=== PATIENT | female | born 1990 | race Caucasian/White ===

== ENCOUNTER 2021-02-15 06:00 | Inpatient (IN) | payer BC ==
[2021-02-15] MEDS ORDERED: TERBUTALINE 1 MG/ML VIAL SQ PRN (06:18)
[2021-02-15] MEDS ORDERED: CARBOPROST TROMETHAMINE 250 MCG/ML 1 ML AMP IM PRN (06:18)
[2021-02-15] MEDS ORDERED: LIDOCAINE 0.5% (PF) 5 MG/ML (50 ML SDV) SQ PRN (06:18)
[2021-02-15] MEDS ORDERED: METHYLERGONOVINE 0.2 MG/ML 1 ML AMP IM PRN (06:18)
[2021-02-15] MEDS ORDERED: OXYTOCIN 10 UNIT/ML 1 ML VIAL IM PRN (06:18)
[2021-02-15 06:24] VITALS: RESP 16
[2021-02-15] MEDS: LACTATED RINGERS 1,000 ML IV SCH ×2 (06:31→17:43)
[2021-02-15] MEDS: OXYTOCIN 30 UNITS/500 ML NS 30 UNIT in SALINE 1 500ML.BAG IV SCH ×2 (06:32→17:40)
[2021-02-15 06:58] LABS: Basophils # (A) 0.1 k/uL (0-0.2); Basophils % (A) 1 %; Eosinophils # (A) 0.1 k/uL (0-0.7); Eosinophils % (A) 1 %; HCT 39.3 % (34.0-46.0); HGB 12.9 gm/dL (11.4-16.0); Lymphocytes # (A) 1.9 k/uL (1.0-4.8); Lymphocytes % (A) 17 %; MCHC 32.9 g/dL (31.0-37.0); MCV 94.4 fL (80.0-100.0); Mean Platelet Volume 7.8; Monocytes # (A) 0.6 k/uL (0-1.0); Monocytes % (A) 5 %; Neutrophils # (A) 8.8 k/uL (1.3-7.7); Neutrophils % (A) 75 %; Platelet Count 255 k/uL (150-450); RBC 4.16 m/uL (3.80-5.40); RDW 13.7 % (11.5-15.5); WBC 11.7 k/uL (3.8-10.6)
--- NOTE | 2021-02-15 07:45 | P.HPOB ---
History of Present Illness H&P Date: 02/15/21 Chief Complaint: Here for induction of labor, postdates This is a 30-year-old female 1 para 0 EDC 02/13/2021 at 40-2/7 weeks' gestation. Patient presents today for induction with reasonably favorable cervix. has been unremarkable, she denies vaginal bleeding, fluid leakage. Fetus is been active throughout the . Past medical history is unremarkable. Past surgical history is negative. Current medications vitamins daily, Zyrtec when necessary. ALLERGIES none known. Family history significant for breast cancer. Social history patient is , she has never been a tobacco smoker. She denies alcohol or drug use. 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 history is significant for blood type A+, rubella status immune. VDRL testing, HIV testing, hepatitis B surface antigen, urine culture, group B strep cultures, gonorrhea and chlamydia cultures all negative. On exam patient is 5 foot 1 inch, 160 pounds, blood pressure 123/67 on admission. The general physical exam is within normal limits. The chest is clear in all obrien. The extremities reveal no edema. Cervix is 2-3 cm dilated, 70% effaced, -1 to -2 station, vertex, anterior, soft. Artificial amniorrhexis reveals clear fluid. heart rate is consistent with reactive NST. Patient is having mild contractions approximately every 4-5 minutes apart spontaneously. Impression: 40-2/7 weeks intrauterine , here for induction of labor, favorable cervix. All signs reassuring. Plan: Oxytocin per hospital protocol. Close maternal and surveillance. Anticipating normal spontaneous vaginal delivery. Analgesic options reviewed with the patient in detail. Review of Systems Constitutional: Reports as per HPI Past Medical History Past Medical History: No Reported History History of Any Multi-Drug Resistant Organisms: None Reported Past Surgical History: No Surgical Hx Reported Past Anesthesia/Blood Transfusion Reactions: No Reported Reaction Past Psychological History: No Psychological Hx Reported Smoking Status: Never smoker Past Alcohol Use History: None Reported Past Drug Use History: None Reported - Past Family History Mother Family Medical History: No Reported History Medications and Allergies Home Medications Medication Instructions Recorded Confirmed Type Aspirin [Adult Low Dose Aspirin EC] 1 tab PO DAILY 02/15/21 02/15/21 History Cetirizine HCl [Zyrtec] 1 tab PO DAILY 02/15/21 02/15/21 History Pnv No.95/Ferrous Fum/Folic AC 1 tab PO DAILY 02/15/21 02/15/21 History [ Multivitamin Tablet] Allergies Allergy/AdvReac Type Severity Reaction Status Date / Time No Known Allergies Allergy Verified 02/15/21 06:16 Exam Vital Signs Temp Pulse Resp BP Pulse Ox 02/15/21 06:16 97.8 F 81 16 123/67 97 Intake and Output 02/14/21 02/15/21 02/15/21 22:59 06:59 14:59 Other: Weight 72.575 kg See dictation under HPI please Results Result Diagrams: 02/15/21 06:40 Abnormal Lab Results - Last 24 Hours (Table) 02/15/21 Range/Units 06:40 WBC 11.7 H (3.8-10.6) k/uL Neutrophils # 8.8 H (1.3-7.7) k/uL Assessment and Plan Assessment: 40-2/7 weeks intrauterine , favorable cervix, here for induction of labor. All signs reassuring. Plan: Oxytocin per hospital protocol. Analgesic options reviewed. Close maternal and surveillance. Anticipate normal spontaneous vaginal delivery. Time with Patient: Less than 30
[2021-02-15] MEDS ORDERED: BUTORPHANOL 1 MG/ML 1 ML VIAL IV PRN (08:46)
[2021-02-15] MEDS ORDERED: ROPIVACAINE 100 MG, fentaNYL (PF). 200 MCG in SODIUM CHLORIDE 0.9% 76 ML EPIDURAL ONE (11:00)
[2021-02-15] MEDS ORDERED: LANOLIN CREAM 5 GM TUBE TOPICAL PRN (16:54)
[2021-02-15] MEDS ORDERED: diphenhydrAMINE 50 MG CAP PO PRN (16:54)
[2021-02-15] MEDS ORDERED: diphenhydrAMINE ELIXIR 25 MG/10 ML CUP PO PRN (16:54)
[2021-02-15] MEDS ORDERED: diphenhydrAMINE 50 MG/ML 1 ML VIAL IVP PRN ×2 (16:54)
[2021-02-15] MEDS ORDERED: diphenhydrAMINE 25 MG CAP PO PRN (16:54)
[2021-02-15] MEDS ORDERED: HYDROCORTISONE 2.5% RECTAL CREAM 30 GM TUBE RECTAL PRN (16:54)
[2021-02-15] MEDS ORDERED: BENZOCAINE/MENTHOL SPRAY 1 GM/SPRAY AEROSOL TOPICAL PRN (16:54)
[2021-02-15] MEDS ORDERED: ZOLPIDEM 5 MG TAB PO PRN (16:54)
[2021-02-15] MEDS ORDERED: SIMETHICONE 80 MG CHEWABLE PO PRN (16:54)
--- NOTE | 2021-02-15 16:54 | P.PROBDLV ---
Vaginal Delivery Note - . Vaginal Delivery Note: This is a 30-year-old white female 1 para 0 EDC 02/13/2021 at 40-2/7 weeks' gestation. Patient presented for induction for postdates with favorable cervix. Artificial amniorrhexis revealed clear fluid. Rubella immune, group B strep negative, blood type B positive. Please see dictated history and physical for details. Oxytocin was started and titrated per hospital protocol. Patient became uncomfortable and requested epidural which was placed without difficulty. She progressed well through the first stage of labor was judged to be completely dilated at 1520 hours. She began the second stage of labor at that time. With excellent maternal expulsive efforts, eventually the infant crowned. The perineal body was prepped and draped in usual sterile fashion. Infant's head delivered occiput anterior and she restituted accordingly. There was no nuchal cord noted. The left or anterior shoulder was delivered easily from underneath the pubic symphysis at which time the oropharynx, nasopharynx, and external nares were all bulb suctioned. Patient was officially delivered of a liveborn female infant at 1639 hours. Umbilical cord was doubly clamped and ligated, she was handed to waiting nurses for evaluation where scores of 9 and 9 at one and 5 minutes respectively were given. Uterus was massaged. Placenta delivered spontaneously, noted to be intact with trivascular cord at 1641 hours. Now careful inspection of the cervix, vagina, perineum, periurethral, and perirectal areas revealed a small first-degree midline perineal laceration easily repaired with a running stitch of 3-0 repeat suture. Uterus is massaged, firm. Estimated blood loss total 300 mL's. All sponge needle and enhancement counts are correct. Infant weighs 6 lbs. 15 oz. or 3145 g. Patient and her family are allowed to begin the bonding experience in the LDR.
[2021-02-15] MEDS: IBUPROFEN 600 MG TAB PO SCH ×2 (17:38→23:42)
[2021-02-15] MEDS: SENNOSIDES-DOCUSATE SODIUM 1 EACH TAB PO SCH (19:42)
[2021-02-16] MEDS: IBUPROFEN 600 MG TAB PO SCH ×3 (05:29→20:14)
[2021-02-16] MEDS: SENNOSIDES-DOCUSATE SODIUM 1 EACH TAB PO SCH ×2 (07:58→20:14)
[2021-02-16] MEDS: ACETAMINOPHEN TAB 325 MG TAB PO PRN (07:59)
--- NOTE | 2021-02-16 08:46 | P.DS ---
Providers Date of admission: 02/15/21 06:05 Expected date of discharge: 02/16/21 Attending physician: Yanci Gutierrez Primary care physician: Stated None Hospital Course: This is a 30-year-old female 1 para 0 EDC 02/13/2021 at 40-2/7 weeks' gestation. Patient presented for induction with favorable cervix for postdates . Rubella status immune, blood type B positive, group B strep cultures negative. Please see dictated history and physical for details. Artificial amniorrhexis revealed clear fluid. Oxytocin was started and titrated per hospital protocol. Epidural was placed. She went on to deliver vaginally a liveborn female with scores of 9 and 9 at one and 5 minutes respectively. Infant weight 3145 g or 6 lbs. 15 oz. There was a small first- degree perineal laceration easily repaired, estimated blood loss 300 mL's. Please see dictated delivery note for details. Patient is doing well. She is voiding, ambulating, passing flatus without difficulty. Vital signs are stable and she is afebrile. Fundus is firm and in the midline, symmetric and 18 week size. Extremities are negative for edema. Breasts are not engorged. is doing well. Patient is judged be in excellent condition for discharge home today. She will follow-up with me in the office in 6 weeks. I have reminded her no intercourse, tampons or douching. She will use [id number] ibuprofen products, or Advil or Aleve as needed for pain. She has a breast pump. I've reviewed with her the options for contraception and we will discuss this further in the office. Call with any fevers shakes or chills, foul smelling or copious lochia, with the passage of large blood clots, with any pain not alleviated by [id number] products, or indeed with any concerns. Assessment: Doing well day #1 Patient Condition at Discharge: Good Plan - Discharge Summary Discharge Rx Participant: No New Discharge Prescriptions: No Action Pnv No.95/Ferrous Fum/Folic AC [ Multivitamin Tablet] 1 tab PO DAILY Cetirizine HCl [Zyrtec] 1 tab PO DAILY Aspirin [Adult Low Dose Aspirin EC] 1 tab PO DAILY Discharge Medication List Aspirin [Adult Low Dose Aspirin EC] 1 tab PO DAILY 02/15/21 [History] Cetirizine HCl [Zyrtec] 1 tab PO DAILY 02/15/21 [History] Pnv No.95/Ferrous Fum/Folic AC [ Multivitamin Tablet] 1 tab PO DAILY 02/15/21 [History] Follow up Appointment(s)/Referral(s): Yanci Gutierrez MD [STAFF PHYSICIAN] - 6 Weeks Discharge Disposition: HOME SELF-CARE
[2021-02-17] MEDS: ACETAMINOPHEN TAB 325 MG TAB PO PRN ×2 (00:43→07:57)
[2021-02-17] MEDS: IBUPROFEN 600 MG TAB PO SCH ×2 (04:18→10:52)
[2021-02-17 08:19] VITALS: BP 112/62; PULSE 70; TEMP 98.1
[2021-02-17] MEDS: SENNOSIDES-DOCUSATE SODIUM 1 EACH TAB PO SCH (08:21)
== END 2021-02-17 14:27 | disposition home or self-care (01) | DRG 807 ==
LOC: 4FBP 06:05
PROVIDERS: ADMIT Obstetrics & Gynecology; ATTEND Obstetrics & Gynecology
PROC: 10E0XZZ Delivery of Products of Conception, External Approach (ICD-10-PCS; principal; 2021-02-15)
PROC: 0HQ9XZZ Repair Perineum Skin, External Approach (ICD-10-PCS; 2021-02-15)
DX: O48.0 Post-term pregnancy (principal); Z37.0 Single live birth; O70.0 First degree perineal laceration during delivery; Z3A.40 40 weeks gestation of pregnancy; Z79.82 Long term (current) use of aspirin; Z80.3 Family history of malignant neoplasm of breast
CPT/HCPCS: 85025; 86850; 86900; 86901

== ENCOUNTER 2023-03-07 05:53 | Inpatient (IN) | payer BC ==
[2023-03-07] MEDS ORDERED: OXYTOCIN 10 UNIT/ML 1 ML VIAL IM PRN (06:12)
[2023-03-07] MEDS ORDERED: TRANEXAMIC 1,000 MG/100ML-NACL 1,000 MG in EMPTY BAG 1 BAG IV PRN (06:12)
[2023-03-07] MEDS ORDERED: LIDOCAINE 0.5% (PF) 5 MG/ML (50 ML SDV) SQ PRN (06:12)
[2023-03-07] MEDS ORDERED: METHYLERGONOVINE 0.2 MG/ML 1 ML AMP IM PRN (06:12)
[2023-03-07] MEDS ORDERED: TERBUTALINE 1 MG/ML VIAL SQ PRN (06:12)
[2023-03-07] MEDS ORDERED: CARBOPROST TROMETHAMINE 250 MCG/ML 1 ML AMP IM PRN (06:12)
[2023-03-07] MEDS ORDERED: miSOPROStoL 200 MCG TAB PO PRN (06:12)
[2023-03-07] MEDS ORDERED: OXYTOCIN 30 UNITS/500 ML NS 30 UNIT in SALINE 1 500ML.BAG IV SCH ×2 (06:15→17:30)
[2023-03-07 06:19] VITALS: RESP 16
[2023-03-07] MEDS: LACTATED RINGERS 1,000 ML IV SCH ×3 (06:27→14:13)
[2023-03-07 06:29] LABS: Basophils % (A) 0 %; Eosinophils # (A) 0.2 k/uL (0-0.7); Eosinophils % (A) 2 %; HCT 37.3 % (34.0-46.0); HGB 12.4 gm/dL (11.4-16.0); Lymphocytes # (A) 1.9 k/uL (1.0-4.8); Lymphocytes % (A) 19 %; MCH 30.7 pg (25.0-35.0); MCHC 33.4 g/dL (31.0-37.0); Mean Platelet Volume 8.5; Monocytes # (A) 0.5 k/uL (0-1.0); Monocytes % (A) 5 %; Neutrophils # (A) 7.4 k/uL (1.3-7.7); Neutrophils % (A) 73 %; Platelet Count 230 k/uL (150-450); RBC 4.05 m/uL (3.80-5.40); WBC 10.1 k/uL (3.8-10.6)
--- NOTE | 2023-03-07 10:46 | P.HPOB ---
History of Present Illness H&P Date: 03/07/23 Chief Complaint: IUP at 39 5/7 weeks This is a 33-year-old 2 para 1 at 39-5/7 weeks that presents to labor and delivery for induction of labor. Patient has been receiving routine care with myself which has been essentially uncomplicated. Patient notes good movement denies contractions vaginal bleeding or loss of fluid. Review of Systems Constitutional: Denies chills, Denies fatigue, Denies fever Ears, nose, mouth and throat: Denies headache Cardiovascular: Reports leg edema Respiratory: Denies dyspnea Gastrointestinal: Denies nausea, Denies vomiting Genitourinary: Reports Past Medical History Past Medical History: No Reported History History of Any Multi-Drug Resistant Organisms: None Reported Past Surgical History: No Surgical Hx Reported Past Anesthesia/Blood Transfusion Reactions: No Reported Reaction Past Psychological History: No Psychological Hx Reported Smoking Status: Never smoker Past Alcohol Use History: None Reported Past Drug Use History: None Reported - Past Family History Mother Family Medical History: No Reported History Medications and Allergies Home Medications Medication Instructions Recorded Confirmed Type Cetirizine HCl [Zyrtec] 1 tab PO DAILY 02/15/21 03/07/23 History Pnv No.95/Ferrous Fum/Folic AC 1 tab PO DAILY 02/15/21 03/07/23 History [ Multivitamin Tablet] Allergies Allergy/AdvReac Type Severity Reaction Status Date / Time No Known Allergies Allergy Verified 02/15/21 06:16 Exam Osteopathic Statement: *. No significant issues noted on an osteopathic structural exam other than those noted in the History and Physical/Consult. Vital Signs Temp Pulse Resp BP Pulse Ox 03/07/23 06:09 96.8 F L 84 16 128/72 98 Intake and Output 03/06/23 03/07/23 03/07/23 22:59 06:59 14:59 Other: Weight 78.018 kg Targeted physical exam is performed and state in general this a well-nourished well-developed female in no acute distress, breathing is noted to be nonlabored, heart has a regular rate and rhythm, abdomen is gravid and ap propriate for gestational age, heart tones are noted to be category 1, she is yudy irregularly, on cervical exam she is 3-4, 70 clamp, -2 station amniotomy is performed and thin stained meconium fluid is appreciated. Results Result Diagrams: 03/07/23 06:20 Assessment and Plan (1) Term Current Visit: Yes Status: Acute Code(s): Z34.90 - ENCNTR FOR SUPRVSN OF NORMAL , UNSP, UNSP TRIMESTER SNOMED Code(s): 74131431 (2) AMA (advanced maternal age) multigravida 35+ Current Visit: Yes Status: Acute Code(s): O09.529 - SUPERVISION OF ELDERLY MULTIGRAVIDA, UNSPECIFIED TRIMESTER SNOMED Code(s): 050620379 Plan: 33-year-old at 39 and 5 presents for induction of labor. Patient is admitted to labor and delivery and Pitocin induction of labor is begun per hospital protocol. Patient is counseled on options for analgesia during labor i ncluding Stadol, nitrous, epidural. Patient does wish epidural when appropriate. Continue current plan, anticipate normal spontaneous vaginal delivery later today.
[2023-03-07] MEDS ORDERED: fentaNYL (PF) 50 MCG/ML 5 ML AMP ONE (11:00)
[2023-03-07] MEDS ORDERED: SODIUM CHLORIDE 0.9% 100 ML BAG ONE (11:00)
[2023-03-07] MEDS ORDERED: ROPIVACAINE 5 MG/ML 20 ML AMPULE ONE (11:00)
[2023-03-07] MEDS ORDERED: ROPIVACAINE 225 MG, fentaNYL (PF). 450 MCG in SODIUM CHLORIDE 0.9% 171 ML EPIDURAL ONE (12:14)
[2023-03-07] MEDS ORDERED: SIMETHICONE 80 MG CHEWABLE PO PRN (17:19)
[2023-03-07] MEDS ORDERED: diphenhydrAMINE 25 MG CAP PO PRN (17:19)
[2023-03-07] MEDS ORDERED: HYDROCORTISONE 2.5% RECTAL CREAM 30 GM TUBE RECTAL PRN (17:19)
[2023-03-07] MEDS ORDERED: diphenhydrAMINE 50 MG CAP PO PRN (17:19)
[2023-03-07] MEDS ORDERED: BENZOCAINE/MENTHOL SPRAY 1 GM/SPRAY AEROSOL TOPICAL PRN (17:19)
[2023-03-07] MEDS ORDERED: ZOLPIDEM 5 MG TAB PO PRN (17:19)
[2023-03-07] MEDS ORDERED: LANOLIN CREAM 5 GM TUBE TOPICAL PRN (17:19)
[2023-03-07] MEDS ORDERED: diphenhydrAMINE 50 MG/ML 1 ML VIAL IVP PRN ×2 (17:19)
--- NOTE | 2023-03-07 17:27 | P.PROBDLV ---
Vaginal Delivery Note - . Vaginal Delivery Note: Viable male delivered at 1659, weight of 7 lbs. 2 oz., Apgars of 9 and 9 at one and 5 minutes respectively. This is a 33-year-old 2 para 1 at 39-5/7 weeks that presented to labor and delivery for induction of labor this morning. Patient was admitted Pitocin induction of labor was begun. For full details on this patient please see the dictated history and physical. Patient underwent amniotomy and clear fluid was obtained. Patient did become uncomfortable and requested epidural placement. Epidural was placed without difficulty by the anesthesia . Patient made progress were complete. Once patient was noted to be completely dilated she was placed in a modified lithotomy position and with excellent maternal effort brought the infant down to a presentation. With further pushing the head followed by the anterior/posterior shoulder and body were delivered. A loose body cord was delivered through. Spontaneous cry was noted at . The umbo cord was doubly clamped and cut. The placenta was delivered spontaneously intact with three-vessel cord being noted. On inspection the patient's vaginal vault a secondary midline laceration was appreciated. This was instilled lidocaine and repaired in usual fashion with 3-0 Rapide. Hemostasis was noted after repair. Uterus is noted to be firm and below the umbilicus. Estimated blood loss 100 mL All counts were correct 2 at the delivery. Patient and tolerated delivery well and are resting comfortably.
[2023-03-07] MEDS: IBUPROFEN 600 MG TAB PO SCH (17:54)
[2023-03-07] MEDS: SENNOSIDES-DOCUSATE SODIUM 1 EACH TAB PO SCH (20:02)
[2023-03-07] MEDS: ACETAMINOPHEN TAB 325 MG TAB PO PRN (20:04)
[2023-03-08] MEDS: IBUPROFEN 600 MG TAB PO SCH ×3 (03:01→16:35)
[2023-03-08] MEDS: LACTATED RINGERS 1,000 ML IV SCH (06:19)
[2023-03-08] MEDS: ACETAMINOPHEN TAB 325 MG TAB PO PRN ×2 (06:56→13:04)
[2023-03-08] MEDS: SENNOSIDES-DOCUSATE SODIUM 1 EACH TAB PO SCH (09:02)
--- NOTE | 2023-03-08 11:09 | P.DS ---
Providers Date of admission: 03/07/23 05:53 Expected date of discharge: 03/08/23 Attending physician: Beverley Ely Primary care physician: Stated None - Discharge Diagnosis(es) (1) Term Current Visit: Yes Status: Acute (2) AMA (advanced maternal age) multigravida 35+ Current Visit: Yes Status: Acute (3) Status post vaginal delivery Current Visit: Yes Status: Acute (4) Obstetric vaginal laceration with second degree perineal laceration Current Visit: Yes Status: Acute Hospital Course: 33-year-old at 39-5/7 weeks that presented to labor and delivery for induction of labor. Patient been receiving routine care with myself which is been essentially uncomplicated. Patient was admitted and Pitocin induction of labor was begun. Patient underwent amniotomy clear fluid was obtained. Patient progressed through labor eventually becoming uncomfortable requesting epidural placement. Epidural was placed without difficulty by the anesthesia department. Patient made slow progress to complete. Once patient was noted be completely dilated she was placed in the modified lithotomy position and with excellent maternal effort had a normal spontaneous vaginal delivery of a viable male . Weight of 7 lbs. 2 oz., Apgars of 9 and 9 at one and 5 minutes respectively. Patient did sustain a second-degree midline laceration which was repaired in usual fashion with 3-0 Rapide. Patient's course has been uneventful. On this day #1 she is a billing and voiding without difficulty. She is tolerating a regular diet without nausea or vomiting. States her pain is well-controlled. She would like discharge home at 24 hours if possible. Patient Condition at Discharge: Good Plan - Discharge Summary New Discharge Prescriptions: No Action Pnv No.95/Ferrous Fum/Folic AC [ Multivitamin Tablet] 1 tab PO DAILY Cetirizine HCl [Zyrtec] 1 tab PO DAILY Discharge Medication List Cetirizine HCl [Zyrtec] 1 tab PO DAILY 02/15/21 [History] Pnv No.95/Ferrous Fum/Folic AC [ Multivitamin Tablet] 1 tab PO DAILY 02/15/21 [History] Follow up Appointment(s)/Referral(s): Beverley Ely DO [Doctor of Osteopathic Medicine] - 4 Weeks Patient Instructions/Handouts: Vaginal Delivery (DC), Vaginal Delivery (GEN) Activity/Diet/Wound Care/Special Instructions: No tub baths or intercourse until 6 weeks . bleeding is discussed with patient. Patient is to call the office and schedule a routine 4 week check. Should she have any concerns prior to this appointment she is urged to call the office. Discharge Disposition: HOME SELF-CARE
[2023-03-08 12:58] VITALS: PULSE 86
[2023-03-08 16:34] VITALS: BP 106/67; TEMP 98
== END 2023-03-08 17:50 | disposition home or self-care (01) | DRG 807 ==
LOC: 4FBP 05:53
PROVIDERS: ADMIT Obstetrics & Gynecology Obstetrics; ATTEND Obstetrics & Gynecology Obstetrics
PROC: 3E033VJ Introduction of Other Hormone into Peripheral Vein, Percutaneous Approach (ICD-10-PCS; principal; 2023-03-07)
PROC: 10E0XZZ Delivery of Products of Conception, External Approach (ICD-10-PCS; principal; 2023-03-07)
PROC: 0KQM0ZZ Repair Perineum Muscle, Open Approach (ICD-10-PCS; principal; 2023-03-07)
PROC: 10907ZC Drainage of Amniotic Fluid, Therapeutic from Products of Conception, Via Natural or Artificial Opening (ICD-10-PCS; principal; 2023-03-07)
DX: O70.1 Second degree perineal laceration during delivery (principal); Z37.0 Single live birth; Z3A.39 39 weeks gestation of pregnancy; Z28.311 Partially vaccinated for COVID-19; Z28.21 Immunization not carried out because of patient refusal
CPT/HCPCS: 85025; 86850; 86900; 86901